=== PATIENT | female | born 2005 | race Hispanic/Latino ===

== ENCOUNTER 2024-12-04 08:40 | Emergency (ER) | payer SELFPAY ==
[~2024-12-04] VITALS: Ht 157.5 cm; Wt 99.8 kg
[2024-12-04 08:59] VITALS: PULSE 90; RESP 18; TEMP 97.9; O2SAT 99
== END 2024-12-04 11:23 | disposition home or self-care (01) ==
LOC: ER 09:03
DX: S62.616A Displaced fracture of proximal phalanx of right little finger, initial encounter for closed fracture (principal); V43.52XA Car driver injured in collision with other type car in traffic accident, initial encounter; Y92.488 Other paved roadways as the place of occurrence of the external cause
CPT/HCPCS: 99283